=== PATIENT | male | born 1950 | race Caucasian/White ===

== ENCOUNTER → 2016-09-23 | Outpatient (CLI) | payer BC, OTHER ==
[~2016-09-23] MED LIST: ASPIRIN325 PO; ATORVASTATIN CA40 MG PO; CARVEDILOL3.125 MG PO; FERREX 150150 MG PO; FISH OIL500 M1 PO; FLEXERIL PO; GLUCOPHAGE1000 MG PO; HEMORRHOIDAL H1 EACH TP; HUMALOG100 UNIT/1 SUBQ; K-DUR 20 MEQ T20 MEQ PO; LANTUS SUBQ; LASIX 40 MG TAB40 M1 PO; LORTAB 5 MG/5001 TA1 PO; NORCO 5-325 TA1 EACH PO; PACERONE 200 M200 M1 PO; PERCOCET 5-3251 EACH PO; SENOKOT-S1 TA1 PO; SIMVASTATIN; SIMVASTATIN40 MG PO; UNICOMPLEX M TA1 TA1 PO; ZESTRIL10 MG PO; ZESTRIL20 MG PO
== END ==
LOC: RAD 16:28
DX: M25.511 Pain in right shoulder (principal); M25.512 Pain in left shoulder

== ENCOUNTER 2017-12-04 08:08 | Emergency (ER) | payer OTHER ==
[~2017-12-04] VITALS: Ht 167.6 cm; Wt 95.3 kg
--- NOTE | ~2017-12-04 | EKG ---
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 <ELECTRONICALLY SIGNED> By: Varinder Braga MD, FACC 12/04/17 1711 0843 0843 Varinder Braga MD, [facility] /EPI
[2017-12-04] MEDS ORDERED: COREG25 MG PO (08:22)
[2017-12-04] MEDS ORDERED: PLAVIX 75 MG TA75 M1 PO (08:24)
[2017-12-04] MEDS ORDERED: FLOMAX0.4 MG PO (08:24)
[2017-12-04] MEDS ORDERED: TRESIBA FL100 UNIT/1 SUBQ (08:25)
[2017-12-04] MEDS ORDERED: ALDACTONE50 MG PO (08:25)
[2017-12-04 09:10] LABS: ABSOLUTE NEUTROPHILS 5.6 thou/uL (1.4-8.2); BASOPHILS 0.8 % (0.0-2.0); EOSINOPHILS 4.8 % (0.0-3.0); HEMATOCRIT 38.4 % (42.0-52.0); LYMPHOCYTES 28.2 % (24.0-44.0); MCH 26.6 pg (26.0-34.0); MCHC 33.8 g/dL (28.0-37.0); MCV 78.5 fL (80.0-100.0); MONOCYTES 7.9 % (1.0-8.0); PLATELET COUNT 238 thou/uL (150-400); POLYS 58.3 % (36.0-66.0); RBC 4.89 mil/uL (4.50-6.00); RDW 14.6 % (10.5-14.5); WBC 9.7 thou/uL (4.0-11.0)
[2017-12-04 09:19] LABS: ANION GAP 6 mmol/L (7-16); BUN 28 mg/dL (7-18); CALCIUM 9.6 mg/dL (8.5-10.1); CHLORIDE 106 mmol/L (98-107); CO2 25 mmol/L (21-32); CREATININE 1.6 mg/dL (0.7-1.3); GLUCOSE 145 mg/dL (74-106); POTASSIUM 4.7 mmol/L (3.5-5.1); SODIUM 137 mmol/L (136-145)
[2017-12-04 09:26] LABS: TROPONIN-I <0.06 ng/mL (<0.06)
[2017-12-04] MEDS ORDERED: VALIUM5 MG PO (10:27)
== END 2017-12-04 10:59 | disposition home or self-care (01) ==
LOC: ER 08:08
PROVIDERS: Emergency Medicine
DX: R42 Dizziness and giddiness (principal); H53.8 Other visual disturbances; I10 Essential (primary) hypertension; E78.5 Hyperlipidemia, unspecified; E11.9 Type 2 diabetes mellitus without complications; I42.9 Cardiomyopathy, unspecified; E78.00 Pure hypercholesterolemia, unspecified; Z90.49 Acquired absence of other specified parts of digestive tract; Z88.8 Allergy status to other drugs, medicaments and biological substances

== ENCOUNTER → 2018-05-15 | Outpatient (CLI) | payer OTHER ==
[~2018-05-15] MED LIST changes: +ALDACTONE50 MG PO; +COREG25 MG PO; +FLOMAX0.4 MG PO; +LISINOPRIL20 MG PO; +PLAVIX 75 MG TA75 M1 PO; +TRESIBA FL100 UNIT/1 SUBQ; +VALIUM5 MG PO
== END ==
LOC: RAD 16:22
DX: T82.529A Displacement of unspecified cardiac and vascular devices and implants, initial encounter (principal)

== ENCOUNTER → 2018-06-04 | Outpatient (CLI) | payer OTHER ==
[~2018-06-04] VITALS: Ht 167.6 cm; Wt 95.3 kg
[~2018-06-04] MED LIST changes: +ENTRESTO 24 MG1 EACH PO
[2018-06-04 11:22] VITALS: BP 165/89
[2018-06-04 11:22] LABS: ABSOLUTE NEUTROPHILS 4.9 thou/uL (1.4-8.2); BASOPHILS 1.1 % (0.0-2.0); EOSINOPHILS 5.9 % (0.0-3.0); HEMATOCRIT 47.3 % (42.0-52.0); HEMOGLOBIN 15.2 gm/dL (14.0-18.0); LYMPHOCYTES 28.6 % (24.0-44.0); MCH 26.1 pg (26.0-34.0); MCHC 32.1 g/dL (28.0-37.0); MCV 81.4 fL (80.0-100.0); MONOCYTES 7.5 % (1.0-8.0); PLATELET COUNT 270 thou/uL (150-400); POLYS 56.9 % (36.0-66.0); RBC 5.81 mil/uL (4.50-6.00); RDW 15.2 % (10.5-14.5); WBC 8.7 thou/uL (4.0-11.0)
[2018-06-04 11:31] LABS: CALCIUM 9.7 mg/dL (8.5-10.1); CREATININE 1.5 mg/dL (0.7-1.3); POTASSIUM 4.4 mmol/L (3.5-5.1)
[2018-06-04 11:37] LABS: ALBUMIN 3.7 g/dL (3.4-5.0); TOTAL BILIRUBIN 0.4 mg/dL (<0.1-1.0)
[2018-06-04 11:41] LABS: APTT 25.4 Seconds (24.5-32.8); PROTIME 9.5 Seconds (9.3-11.4)
--- NOTE | 2018-06-08 14:52 | P ---
[facility] [place] [address] PROCEDURE REPORT Name: IRIS SWIFT Room #: REG [facility]#: [id number] Admission: 06/04/18 Attend Phys: Wilbert Mann MD Discharge: Date of : 50 Report #: [id number] THIS REPORT FOR: //name// CC: Robert Mann DATE OF SERVICE: 06/04/2018 PREOPERATIVE DIAGNOSIS: Abnormal implantable cardioverter-defibrillator lead impedance. POSTOPERATIVE DIAGNOSIS: Abnormal implantable cardioverter-defibrillator lead impedance. HISTORY OF PRESENT ILLNESS: The patient is a 67-year-old status post recent ICD implantation by Dr. Montgomery for primary prevention of sudden cardiac . He was noted to have change in the impedance on his ICD lead as well as noise and decreased R waves. He is here for ICD lead revision. PROCEDURES PERFORMED: Insert and reposition of a single ICD plus lead, CPT CODE 31201. ANESTHESIA: The patient underwent MAC anesthesia with no anesthesia related complications. DESCRIPTION OF PROCEDURE: The patient underwent informed consent. We discussed the details of the procedure including the risk, which include but not limited to bleeding, infection, stroke, MO as well as possible cardiac perforation. He understood these risks and is willing to proceed. The patient was brought to the EP laboratory in a fasting and sedated state and prepped and draped in a sterile fashion. He underwent venography, which demonstrated patency of the left axillary vein. He received IV vancomycin for antibiotic prophylaxis. Next, I injected lidocaine at the prior incision site. The incision was made and the chronic pocket was entered. I then dissected out the lead from some of the scar tissue. I then performed a tug test on the lead and the lead came out of the header. It appeared that the header had not been completely tightened down. I therefore tested the lead using the external wires and there was normal sensing, impedances and thresholds and there was no lead noise on the existing lead. I reviewed the lead insulation and this appeared to be within normal limits. I therefore then placed the lead into the header and I secured the header. I performed multiple tug tests and it appeared that the screw mechanism of his ICD was within normal limits. I therefore expanded the pocket slightly as I planned to place a [employer] antibiotic pouch into the pocket given his higher risk of infection. I then placed the device and [address] [address] PROCEDURE REPORT Name: IRIS SWIFT [id number] Admission: 06/04/18 Attend Phys: Wilbert Mann MD Discharge: Date of : 50 Report #: [id number] antibiotic pouch into the pocket and then irrigated the pocket with vancomycin. I then closed the pocket in 3 layers using 2-0 for the deep layer, 3-0 for the mid layer and 4-0 for the subcuticular. Surgical glue was placed to the outer skin layer. The device was interrogated and was found to be functioning normally with stable impedances, thresholds and sensing. There was no lead noise. The device was reprogrammed to its nominal settings. Again, the device was a [employer] model #962428B, serial #[id number]. The ICD lead was a [employer] model#7122Q, 58 cm, serial #[id number]. CONCLUSIONS: Successful ICD lead revision without complications. RECOMMENDATIONS: The patient will be discharged home today on his standard medications and will follow up in 7-10 days for site check. <ELECTRONICALLY SIGNED> By: Wilbert Mann MD 06/08/18 1452 1332 1217 Wilbert Mann MD /nt
== END | disposition home or self-care (01) ==
LOC: CATH 06-01 13:22
PROVIDERS: Internal Medicine Cardiovascular Disease
DX: T82.120A Displacement of cardiac electrode, initial encounter (principal); I25.5 Ischemic cardiomyopathy; I50.9 Heart failure, unspecified; E11.9 Type 2 diabetes mellitus without complications; E78.5 Hyperlipidemia, unspecified; E78.00 Pure hypercholesterolemia, unspecified; Z82.49 Family history of ischemic heart disease and other diseases of the circulatory system; Z79.899 Other long term (current) drug therapy; Z90.49 Acquired absence of other specified parts of digestive tract; Z95.1 Presence of aortocoronary bypass graft; Z79.82 Long term (current) use of aspirin; Z79.4 Long term (current) use of insulin; Z98.890 Other specified postprocedural states; Z88.8 Allergy status to other drugs, medicaments and biological substances; Y83.8 Other surgical procedures as the cause of abnormal reaction of the patient, or of later complication, without mention of misadventure at the time of the procedure

== ENCOUNTER 2019-07-12 09:44 | Inpatient (IN) | payer OTHER ==
[~2019-07-12] VITALS: Ht 167.6 cm; Wt 93.1 kg
--- NOTE | ~2019-07-12 | EKG ---
[facility] [place] [address] ELECTROCARDIOGRAM REPORT Name: SWIFTIRIS ROMERO Room #: [facility] M.R.#: [id number] Admission: Attend Phys: Discharge: Date of : 50 Report #: [id number] THIS REPORT FOR: cc: Henry Macedo James A. DO Epiphany, Epiphany MD ~ THIS REPORT FOR: //name// [facility] ED Test Date: 2019-07-12 Test Time: 09:46:14 Pat Name: IRIS SWIFT Department: Room: Gender: M [employer] Hand: : 1950 Requested By: Samy Duran Order Number: [id number] MD: Measurements Intervals [place] Rate: 94 P: 23 NC: 176 QRS: -86 QRSD: 177 T: 81 QT: 432 QTc: 541 Interpretive Statements Sinus rhythm Left atrial enlargement Right bundle branch block Compared to ECG 12/04/2017 08:43:31 Atrial premature complex(es) no longer present Myocardial infarct finding no longer present [email or web address] By: 0946 0946 Epiphany Epiphany, /EPI
[2019-07-12 09:49] VITALS: BP 183/102
[2019-07-12] MEDS ORDERED: TRULICITY0.75 MG/0. SUBQ (10:17)
[2019-07-12 10:24] LABS: ABSOLUTE NEUTROPHILS 5.5 thou/uL (1.4-8.2); EOSINOPHILS 3.3 % (0.0-3.0); LYMPHOCYTES 23.5 % (24.0-44.0); MCH 26.5 pg (26.0-34.0); MCHC 31.7 g/dL (28.0-37.0); MCV 83.5 fL (80.0-100.0); MONOCYTES 7.6 % (1.0-8.0); PLATELET COUNT 256 thou/uL (150-400); POLYS 64.6 % (36.0-66.0); RBC 5.27 mil/uL (4.50-6.00); RDW 14.6 % (10.5-14.5); WBC 8.5 thou/uL (4.0-11.0)
[2019-07-12 10:27] LABS: CALCIUM 9.1 mg/dL (8.5-10.1); CREATININE 1.5 mg/dL (0.7-1.3); POTASSIUM 4.4 mmol/L (3.5-5.1)
[2019-07-12 10:38] LABS: ALBUMIN 3.7 g/dL (3.4-5.0); MAGNESIUM 1.7 mg/dL (1.8-2.4); TOTAL BILIRUBIN 0.6 mg/dL (<0.1-1.0); TOTAL PROTEIN 7.9 g/dL (6.4-8.2); TROPONIN-I 0.08 ng/mL (<0.06)
[2019-07-12 11:24] VITALS: BP 152/95
[2019-07-12 12:37] VITALS: BP 147/96
--- NOTE | 2019-07-12 12:51 | NUR ---
REC PT FROM ED AT 1245, VS TAKEN, B/P STILL REMAINS HIGH AFTER AMBULATION FROM ED BED AND BATHROOM. ROOM AIR. NO COMPLAINTS/NEEDS AT THIS TIME. SEE SEPARATE INTERVENTIONS FOR ASSESSMENTS, SEE CARDIAC HISTORY. GAVE DEMO OF CALL LIGHT AND ROOM, SPOUSE AT BEDSIDE. ENCOURAGED BOTH TO USE CALL LIGHT FOR ANY NEEDS
[2019-07-12 12:52] LABS: CHOLESTEROL 260 mg/dL (<200); HDL CHOLESTEROL 34 mg/dL (>40); LDL CHOLESTEROL 186 mg/dL (<100); TC:HDL 7.6 Ratio (Not establshd); TRIGLYCERIDE 201 mg/dL (<150); VLDL 40 mg/dL (<40)
[2019-07-12 13:31] VITALS: BP 156/101
--- NOTE | 2019-07-12 15:10 | 2DMMODE ---
[facility] [address] [place] [address] 2 D/M-MODE ECHOCARDIOGRAM Name: IRIS SWIFT Room #: 212-P ADM IN M.R.#: [id number] Admission: 07/12/19 Attend Phys: Arthur Rm MD Discharge: Date of : 50 Report #: [id number] THIS REPORT FOR: cc: Henry Macedo James A. DO Lammoglia, Francisco J. MD ~ APPROVED REPORT Study performed: 07/12/2019 13:50:07 EXAM: Comprehensive 2D, Doppler, and color-flow Echocardiogram Patient Location: ER Room #: 7 Status: stat BSA: 2.00 HR: 86 bpm BP: 147/96 mmHg Rhythm: Pacemaker Other Information Study Quality: Good Indications ICD: Diabetes Dyspnea CAD Cardiomyopathy Chest Pain Hypertension/HDD 2D Dimensions RVDd: 33.37 mm IVSd: 10.32 (7-11mm) LVOT Diam: 19.13 (18-24mm) LVDd: 55.87 mm PWd: 10.07 (7-11mm) Ascending Ao: 29.44 (22-36mm) LVDs: 47.52 (25-40mm) Aortic Root: 31.74 mm IVC: 21.00 mm Volumes Left Atrial Volume (Systole) Single Plane 4CH: 60.00 mL Single Plane 2CH: 52.82 mL LA ESV Index: 31.00 mL/m2 [facility] [address] [place] [address] 2 D/M-MODE ECHOCARDIOGRAM Name: IRIS SWIFT Room #: 212-P ADM IN M.R.#: [id number] Admission: 07/12/19 Attend Phys: Arthur Rm MD Discharge: Date of : 50 Report #: [id number] Aortic Valve AoV Peak Param.: 1.08 m/s AO Peak Gr.: 4.63 mmHg LVOT Max P.20 mmHg LVOT Max V: 0.55 m/s BANDAR Vmax: 1.46 cm2 Pulmonary Valve PV Peak Param.: 0.91 m/s PV Peak Gr.: 3.33 mmHg Tricuspid Valve TR Peak Param.: 3.41 m/s TR Peak Gr.: 46.59 mmHg PA Pressure: 57.00 mmHg Left Ventricle Left ventricle is at the upper limits of normal. There is normal left ventricular wall thickness. Left ventricular ejection fraction is moderate to severely decreased. LVEF is 30-35%. Severe diastolic dysfunction is present (restrictive filling). Right Ventricle Right ventricle is at the upper limits of normal. Right ventricle is borderline. Device lead is present in the right ventricle. Atria Left atrium is at the upper limits of normal. Right atrium is dilated. Device lead is present in the right atrium. Aortic Valve The aortic valve is normal in structure. The Aortic valve is sclerotic. No aortic regurgitation is present. There is no aortic valvular stenosis. Mitral Valve The mitral valve is normal in structure. Mild mitral regurgitation. No evidence of mitral valve stenosis. Tricuspid Valve The tricuspid valve is normal in structure. There is mild tricuspid regurgitation. Estimated PAP 57 mmHg. There is moderate pulmonary hypertension. Pulmonic Valve The pulmonary valve is normal in structure. Trace to mild pulmonic regurgitation. [facility] [address] [place] [address] 2 D/M-MODE ECHOCARDIOGRAM Name: IRIS SWIFT Room #: 212-[facility] IN ..#: [id number] Admission: 07/12/19 Attend Phys: Arthur Rm MD Discharge: Date of : 50 Report #: [id number] Great Vessels The aortic root is normal in size. IVC is dilated and collapses <50% with inspiration. Pericardium There is no pericardial effusion. <Conclusion> Left ventricle is at the upper limits of normal. LVEF is 30-35%. Right ventricle is at the upper limits of normal. Device lead is present in the right ventricle. Left atrium is at the upper limits of normal. Right atrium is dilated. Device lead is present in the right atrium. The aortic valve is normal in structure. The Aortic valve is sclerotic. The mitral valve is normal in structure. Mild mitral regurgitation. The tricuspid valve is normal in structure. There is mild tricuspid regurgitation. Estimated PAP 57 mmHg. There is moderate pulmonary hypertension. The pulmonary valve is normal in structure. Trace to mild pulmonic regurgitation. There is no pericardial effusion. <ELECTRONICALLY SIGNED> By: Robert Montgomery MD 07/12/19 1509 1509 1509 Robert Montgomery MD /INF
[2019-07-12 17:16] LABS: APTT 29.9 Seconds (24.5-32.8); D-DIMER 0.53 ug/mLFEU (0.19-0.50); PROTIME 10.1 Seconds (9.3-11.4)
[2019-07-12 18:00] VITALS: BP 171/96
[2019-07-12 20:26] VITALS: BP 140/76
[2019-07-13 03:57] VITALS: BP 126/63
[2019-07-13 04:06] LABS: GLYCOHEMOGLOBIN (HGB A1C) 12.8 % (4.8-5.6)
--- NOTE | 2019-07-13 04:13 | NUR ---
ASSUMED PT CARE AT 1900. PT IS ALERT AND ORIENTEDX4 AND PLEASANT, DENIES CHEST PAIN AND SOB, ASSESSMENTS CHARTED, SINUS RHYTHM WITH 1ST DEGREE AVB ON THE MONITOR, RESTED WELL, WILL CONTINUE TO MONITOR
[2019-07-13 06:10] LABS: HEMATOCRIT 40.6 % (42.0-52.0); HEMOGLOBIN 12.8 gm/dL (14.0-18.0); MCH 26.4 pg (26.0-34.0); MCHC 31.6 g/dL (28.0-37.0); MCV 83.7 fL (80.0-100.0); RBC 4.85 mil/uL (4.50-6.00); RDW 14.5 % (10.5-14.5); WBC 7.3 thou/uL (4.0-11.0)
[2019-07-13 06:35] LABS: CALCIUM 8.7 mg/dL (8.5-10.1); CREATININE 1.6 mg/dL (0.7-1.3); POTASSIUM 4.5 mmol/L (3.5-5.1); TROPONIN-I 0.07 ng/mL (<0.06)
[2019-07-13 08:42] VITALS: BP 136/82
[2019-07-13 09:52] VITALS: BP 136/82
[2019-07-13 12:06] VITALS: BP 100/51
--- NOTE | 2019-07-13 13:11 | HC ---
[facility] [place] [address] CONSULTATION Name: IRIS SWIFT Room #: 212-P ADM IN M.R.#: [id number] Admission: 07/12/19 Attend Phys: Arthur Rm MD Discharge: Date of : 50 Report #: [id number] THIS REPORT FOR: cc: Henry Macedo James A. DO Al-Mubaslat, Ahmad MD ~ CC: Henry Rm DATE OF SERVICE: 07/13/2019 ENDOCRINE CONSULTATION NOTE CONSULTING PHYSICIAN: Dr. Sonali Goldman. REASON FOR CONSULTATION: Uncontrolled type 2 diabetes mellitus. PRIMARY CARE: Dr. Macedo. REASON FOR CONSULTATION: Uncontrolled type 2 diabetes mellitus. HISTORY OF PRESENT ILLNESS: This is a 69-year-old male patient whose medical background is significant for type 2 diabetes mellitus, coronary artery disease, cardiomyopathy, and chronic kidney disease as well as hypertension and hyperlipidemia. The patient presented to the ER yesterday after complaints of intermittent chest pain that occurred for some time prior to his presentation. When questioned about his diabetes history, the patient explained that he had been a diabetic for many years and that he was maintained on a regimen of Tresiba insulin 45 units twice a day and Trulicity once a week. However, he decided to stop all kinds of antidiabetic therapy more than 2 months ago. When asked about the reason for this, he denied having had tolerability or financial issues relating to diabetes therapy, but said he just did not feel like continuing with that. However, the patient continued to monitor his blood glucose values regularly and reports that his blood sugar values have consistently run between 250 and 350 mg/dL. However, as blood glucose values have risen, he did not experience polyphagia, polydipsia, polyuria or body weight changes. The patient is not aware of diabetic retinopathy and he obtains routine eye exams. He is not aware of chronic kidney disease and denies active issues with peripheral diabetic neuropathy. The patient has an extensive history of CAD remarkable for 5-vessel bypass surgery in 2014. He notes that he has been following with Cardiology closely since then. He is also known to have cardiomyopathy, status post ICD placement. [facility] [address] [place] [address] CONSULTATION Name: IRIS SWIFT Room #: 212-P [facility] IN [facility].#: [id number] Admission: 07/12/19 Attend Phys: Arthur Rm MD Discharge: Date of : 50 Report #: [id number] REVIEW OF SYSTEMS: CONSTITUTIONAL: Slight issues with fatigue and tiredness, but not body weight changes, fever or chills. HEENT: Negative for sinus congestion, sinus pain, ear drainage. PULMONARY: Occasional issues with shortness of breath, but no cough or hemoptysis. CARDIAC: Occasional dyspnea on exertion, slight trace edema and intermittent active issues with chest pain. GASTROINTESTINAL: Occasional abdominal distention, discomfort, nausea, but not vomiting. NEUROLOGY: Negative for lightheadedness, loss of consciousness, seizure activity or frequent severe headaches. PSYCHIATRIC: Negative for delusions, hallucinations or other major issues. Otherwise, review of systems noncontributory other than those mentioned in HPI. PAST MEDICAL HISTORY: 1. Type 2 diabetes mellitus. 2. Hypertension. 3. Hyperlipidemia. 4. Coronary artery disease, status post 5-vessel CABG 5 years ago. 5. Cardiomyopathy, status post ICD placement. 6. History of kidney stones. 7. BPH. ACTIVE MEDICATIONS: Aspirin 325 mg daily, atorvastatin 40 mg daily, Entresto 24-26 mg 1 tab daily, carvedilol 25 mg b.i.d., Flomax 0.4 mg daily, spironolactone 25 mg daily. PAST SURGICAL HISTORY: Gallbladder removal, right ankle surgery, left knee surgery, 5-vessel CABG and ICD placement. ALLERGIES: HE IS ALLERGIC TO MECLIZINE. FAMILY HISTORY: Noncontributory. 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 Denies use of tobacco, alcohol or illicit drugs. PHYSICAL EXAMINATION: GENERAL: Pleasant male patient who is not in apparent pain or distress. VITAL SIGNS: Blood pressure is 136/82 mmHg, heart rate is 64 beats per minute, respirations 22 per minute, temperature of 36.4 degrees. CONSTITUTIONAL: The patient is lying in bed comfortably, not in pain or distress. HEENT: Anicteric sclerae. Intact extraocular motions. [address] [address] CONSULTATION Name: IRIS SWIFT Room #: 212-P [facility] IN M.R.#: [id number] Admission: 07/12/19 Attend Phys: Arthur Rm MD Discharge: Date of : 50 Report #: [id number] NECK: Supple, without JVD, carotid bruits or lymphadenopathy. I do not appreciate thyromegaly. CHEST: Noted for moderate air entry bilaterally with scattered rales. No wheeze or crackles. HEART: Regular rate and rhythm without murmurs or gallops. ABDOMEN: Soft and lax. No guarding. Active bowel sounds. EXTREMITIES: Lower extremity exam, trace ankle edema bilaterally. No skin breaks. Active pedal pulses. Sensation to light touch is largely intact. NEUROLOGIC: Awake, alert and oriented to time, place and person. The remainder of his examination is largely nonfocal. PSYCHIATRIC: Pleasant, interactive, appropriate. Normal mood and affect. LABORATORY DATA: Since his arrival, his blood glucoses have ranged between 134-284 mg/dL. Otherwise, sodium 139, potassium 4.5, chloride 106, CO2 of 25, anion gap 8, BUN 19, creatinine 1.6. It is noted that his baseline had ranged anywhere from 1.2-2.2, lipase 102, total bilirubin 0.6, calcium 8.7, magnesium 1.7, alkaline phosphatase 164, ALT 56, total protein 7.9, albumin 3.7, EGFR 43. Troponin 0.07. Total cholesterol 260, triglycerides 201, HDL 34, LDL 186. BNP 2747, white blood count 7.3, hemoglobin 12.8, hematocrit 40.6, platelets 238. Hemoglobin A1c 12.8%. TSH 2.441. ASSESSMENT AND PLAN: 1. Type 2 diabetes mellitus. The patient had a complete abandonment of his antidiabetic meds over 2 months ago, which reflected poorly on his glycemic control both as per his reported blood glucose values as well as by his recorded hemoglobin A1c of 12.8%. I spent a lot of time with the patient, counseling him about the necessity of achieving and maintaining adequate glycemic control towards the prevention of microvascular and macrovascular diabetic complications, especially in view of his extensive and documented coronary artery disease, which he seemed to understand well. I counseled him about the desired blood glucose range of control. Given the severe hyperglycemic outlook, it would be essential to include insulin in any antidiabetic regimen established at this point in time and I will do so by adding Lantus insulin at a dose of 22 units daily. The patient would benefit from the addition of low dose metformin, SGLT2 inhibitor, and possibly resuming GLP-1 analogue coverage going forward. However, in the immediate setting, I will add linagliptin as well and provide support with low intensity Humalog supplemental scale to utilize as needed while we monitor his blood glucose values a.c. and at bedtime. 2. Hypertension. The patient's level of blood pressure control is adequate on the current regimen, he is to continue with the same. 3. Hyperlipidemia. The patient's level of lipid control is inadequate and I suspect it probably is as well due to significant therapeutic noncompliance. He was counseled about the importance of maintaining adequate lipid control for CVD prevention, which he understands well. Currently, he is placed on atorvastatin [address] [address] CONSULTATION Name: JAMISONNIDHI Room #: 212-P [facility] IN M.R.#: [id number] Admission: 07/12/19 Attend Phys: Arthur Rm MD Discharge: Date of : 50 Report #: [id number] 40 mg at bedtime and tolerating it well, he is to continue with the same. 4. Coronary artery disease. The patient has active issues with CAD, cardiomyopathy and Cardiology is following closely, especially in view of his active chest pain issues. We will defer further management in this regard to Cardiology. I reviewed the patient's clinical care notes, laboratory notes, and other pertinent data past and present for over 35 minutes. I certainly appreciate this consultation by Dr. Goldman. <ELECTRONICALLY SIGNED> By: Estrella Granger MD 07/13/19 1311 1200 1219 Estrella Granger MD /nt
--- NOTE | 2019-07-13 14:45 | NUR ---
ASSUMED CARE PT SHIFT SHIFT CHANGE. ASSESSMENTS CHARTED. MEDS GIVEN PER AUG. PT ALERT AND ORIENTED. VSS. DENIES PAIN. O2 SATS WNL ON ROOM AIR. PT UP INDEPENDENT. DENIES CHEST PAIN/SOB. PT CURRENTLY RESTING IN BED WITH NO NEEDS AT THIS TIME. WILL PASS ON REPORT.
[2019-07-13 15:30] VITALS: BP 106/65
[2019-07-13 20:00] VITALS: BP 102/58
[2019-07-14 03:19] VITALS: BP 102/58
[2019-07-14 04:00] VITALS: BP 100/60
--- NOTE | 2019-07-14 04:48 | NUR ---
ASSUMED PT CARE AT 1900, PT IS ALERT AND ORIENTEDX4, IN GOOD SPIRITS, DENIES CHEST PAIN, COUGH OR SOB, VITAL SIGNS STABLE, ASSESSMENTS CHARTED, SR ON THE MONITOR, RESTED WELL THROUGH THE NIGHT, WILL CONTINUE TO MONITOR
[2019-07-14 05:35] LABS: HEMATOCRIT 39.5 % (42.0-52.0); HEMOGLOBIN 12.5 gm/dL (14.0-18.0); MCH 26.3 pg (26.0-34.0); MCHC 31.7 g/dL (28.0-37.0); MCV 82.8 fL (80.0-100.0); RBC 4.77 mil/uL (4.50-6.00); RDW 14.9 % (10.5-14.5); WBC 8.1 thou/uL (4.0-11.0)
[2019-07-14 05:54] LABS: CALCIUM 8.9 mg/dL (8.5-10.1); CREATININE 1.7 mg/dL (0.7-1.3); MAGNESIUM 2.1 mg/dL (1.8-2.4); POTASSIUM 3.7 mmol/L (3.5-5.1)
[2019-07-14 07:40] VITALS: BP 139/71
[2019-07-14 12:03] VITALS: BP 107/50
--- NOTE | 2019-07-14 12:53 | NUR ---
PATIENT ALERT ORIENTED X4. WILL BE DISCHARGING TOMORROW PER CARDIOLOGY. STATES HE FEELS MUCH BETTER TODAY. HE IS UP AD EMILY. RESPIRATIONS NON LABORED ELVIN. WITH REST. IN GOOD MOOD TODAY. WILL CONT WITH PLAN OF CARE.
[2019-07-14 17:01] VITALS: BP 128/81
--- NOTE | 2019-07-14 18:36 | NUR ---
ASSUMED CARE OF PT APPROX 14:00 ON, A&0X4, AMB INDEPENDENTLY, ONLY SLIGHTLY SOA W/AMB, IN EXCELLENT SPIRITS. BG AND HTN CLOSELY MONITORED. FAMILY ABSENT TODAY. PT ENCOURAGED TO USE CALL LIGHT FOR ANY NEEDS. SEE SEPARATE INTERVENTIONS FOR ASSESSMENTS.
[2019-07-14 20:16] VITALS: BP 125/69
--- NOTE | 2019-07-15 03:29 | NUR ---
ASSUMED CARE FROM DAY SHIFT PT RESTING IN BED, DENIES CHEST PAIN OR SOA, DISCUSSED PLAN OF CARE AND AGREEABLE. SERICULTURE TEACHER SHOWS NSR . RESTED WELL THROUGHOUT HOURLY ROUNDS. WILL CONITNUE WITH CURRENT PLAN OF CARE AND WILL REPORT CHANGES OR ABNORMAL FINDINGS.
[2019-07-15 04:42] VITALS: BP 120/66
[2019-07-15 08:00] VITALS: BP 114/78
[2019-07-15 12:18] VITALS: BP 131/70
[2019-07-15] MEDS ORDERED: HUMALOG100 UNIT/1 SUBQ (12:21)
[2019-07-15] MEDS ORDERED: ACCUPRIL40 MG PO (12:21)
[2019-07-15] MEDS ORDERED: TRADJENTA5 MG PO (12:21)
[2019-07-15] MEDS ORDERED: DEMADEX20 MG PO (12:21)
[2019-07-15] MEDS ORDERED: LANTUS SUBQ (12:21)
[2019-07-15 14:19] VITALS: BP 131/70
--- NOTE | 2019-07-15 15:23 | NUR ---
[facility] SPOKE WITH GHAZAL IN INTAKE SHE RECEIVED REFERRAL AND CAN ACCEPT AT DC. PT DISCHARGING HOME TODAY WITH [facility] HH FAXED DC ORDERS/SUMMARY SPOKE WITH GHAZAL AND SHE RECEIVED DC ORDERS AND WILL NOTIFY PT TIME OF VISITS.
--- NOTE | 2019-07-15 16:03 | NUR ---
ASSESSMENT CHARTED. PT ALERT AND ORIENTED. VSS. DENIED HAVING PAIN OR DISCOMFORT. SEEN BY DR. JEFFERS. ORDERS GIVEN TO DISCHARGE PT TO HOME WITH HOME HEALTH. DISCHARGE INSTRUCTIONS GIVEN TO PT. PT VERBERLISED UNDERSTANDING.
--- NOTE | 2019-07-15 16:15 | NUR ---
met with patient who is to dc home today. He is to dc with HH. He reports he has rec in past but cannot recall. Patient with no preference for HH care and agreeable to [facility], they are accepting. Verified address and PCP. no further needs
== END 2019-07-15 16:08 | disposition home health service (06) | DRG 291 ==
LOC: ER 09:44 → EROBS 11:38 → 2N 11:38
PROVIDERS: Emergency Medicine; Internal Medicine; ADMIT Hospitalist
DX: I13.0 Hypertensive heart and chronic kidney disease with heart failure and stage 1 through stage 4 chronic kidney disease, or unspecified chronic kidney disease (principal); I50.23 Acute on chronic systolic (congestive) heart failure; N17.9 Acute kidney failure, unspecified; E78.00 Pure hypercholesterolemia, unspecified; I25.10 Atherosclerotic heart disease of native coronary artery without angina pectoris; E11.22 Type 2 diabetes mellitus with diabetic chronic kidney disease; N18.9 Chronic kidney disease, unspecified; E78.5 Hyperlipidemia, unspecified; N40.0 Benign prostatic hyperplasia without lower urinary tract symptoms; E66.9 Obesity, unspecified; I25.5 Ischemic cardiomyopathy; Z68.33 Body mass index [BMI] 33.0-33.9, adult; I25.2 Old myocardial infarction; Z95.1 Presence of aortocoronary bypass graft; Z95.810 Presence of automatic (implantable) cardiac defibrillator; Z90.49 Acquired absence of other specified parts of digestive tract; Z87.442 Personal history of urinary calculi; Z79.82 Long term (current) use of aspirin; Z79.4 Long term (current) use of insulin; Z79.899 Other long term (current) drug therapy; Z88.8 Allergy status to other drugs, medicaments and biological substances; Z91.14 Patient's other noncompliance with medication regimen; Z95.5 Presence of coronary angioplasty implant and graft
CPT/HCPCS: 10081

== ENCOUNTER → 2019-08-06 | Outpatient (CLI) | payer OTHER ==
[~2019-08-06] MED LIST changes: +ACCUPRIL40 MG PO; +DEMADEX20 MG PO; +TRADJENTA5 MG PO; +TRULICITY0.75 MG/0. SUBQ
== END ==
LOC: SJCVC 15:03
DX: I25.5 Ischemic cardiomyopathy (principal); I50.22 Chronic systolic (congestive) heart failure; I25.10 Atherosclerotic heart disease of native coronary artery without angina pectoris; E11.9 Type 2 diabetes mellitus without complications; Z95.1 Presence of aortocoronary bypass graft; Z90.49 Acquired absence of other specified parts of digestive tract; Z79.899 Other long term (current) drug therapy

== ENCOUNTER 2020-07-27 15:35 | Emergency (ER) | payer OTHER ==
[~2020-07-27] VITALS: Ht 167.6 cm; Wt 88.5 kg
[2020-07-27 16:36] LABS: ABSOLUTE NEUTROPHILS 6.6 thou/uL (1.4-8.2); BASOPHILS 1.1 % (0.0-2.0); EOSINOPHILS 3.3 % (0.0-3.0); HEMATOCRIT 37.9 % (42.0-52.0); HEMOGLOBIN 12.1 gm/dL (14.0-18.0); LYMPHOCYTES 18.5 % (24.0-44.0); MCH 26.8 pg (26.0-34.0); MCHC 32.1 g/dL (28.0-37.0); MCV 83.7 fL (80.0-100.0); MONOCYTES 7.6 % (1.0-8.0); PLATELET COUNT 384 thou/uL (150-400); POLYS 69.5 % (36.0-66.0); RBC 4.53 mil/uL (4.50-6.00); RDW 14.9 % (10.5-14.5); WBC 9.5 thou/uL (4.0-11.0)
[2020-07-27 16:52] LABS: ANION GAP 6 mmol/L (7-16); BUN 22 mg/dL (7-18); CALCIUM 9.4 mg/dL (8.5-10.1); CHLORIDE 104 mmol/L (98-107); CO2 28 mmol/L (21-32); CREATININE 1.6 mg/dL (0.7-1.3); GLUCOSE 256 mg/dL (74-106); POTASSIUM 4.6 mmol/L (3.5-5.1); SODIUM 138 mmol/L (136-145)
[2020-07-27 16:56] LABS: APTT 27.9 Seconds (24.5-32.8); PROTIME 10.7 Seconds (9.3-11.4)
[2020-07-27 17:02] LABS: ALBUMIN 3.2 g/dL (3.4-5.0); LIPASE 118 U/L (73-393); SGOT 31 U/L (15-37); SGPT 70 U/L (16-63); TOTAL BILIRUBIN 0.5 mg/dL (0.2-1.0); TOTAL PROTEIN 7.2 g/dL (6.4-8.2); TROPONIN-I <0.06 ng/mL (<0.06)
[2020-07-27] MEDS ORDERED: LASIX 40 MG TAB40 MG PO (17:53)
[2020-07-27 18:02] VITALS: BP 163/101
--- NOTE | 2020-07-28 07:03 | EKG ---
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: SANJUANA : 1950 Requested By: Derrek Chaidez Order Number: [id number] MD: Ashish Russo Measurements Intervals [place] Rate: 101 P: 12 [place]: 187 QRS: -75 QRSD: 153 T: 97 QT: 378 QTc: 490 Interpretive Statements Sinus tachycardia Probable left atrial enlargement Right bundle branch block Lateral leads are also involved Compared to ECG 07/12/2019 09:46:14 Sinus rhythm no longer present Electronically Signed On 07-28-2020 7:03:32 CHIEF BUILDING INSPECTOR by Ashish Russo [email or web address] <ELECTRONICALLY SIGNED> By: Ashish Russo MD, [facility] 07/28/20 0703 1540 1540 Ashish Russo MD, FACC /EPI
== END 2020-07-27 18:01 | disposition home or self-care (01) ==
LOC: ER 15:35
PROVIDERS: Emergency Medicine
DX: R07.89 Other chest pain (principal); I11.0 Hypertensive heart disease with heart failure; I50.9 Heart failure, unspecified; E11.9 Type 2 diabetes mellitus without complications; E78.5 Hyperlipidemia, unspecified; Z95.1 Presence of aortocoronary bypass graft; Z79.4 Long term (current) use of insulin; Z79.899 Other long term (current) drug therapy; Z88.8 Allergy status to other drugs, medicaments and biological substances

== ENCOUNTER → 2020-07-29 | Outpatient (CLI) | payer OTHER ==
[~2020-07-29] MED LIST changes: +LASIX 40 MG TAB40 MG PO
== END ==
LOC: SJCVC 12:55
PROVIDERS: ATTEND Internal Medicine
DX: I25.5 Ischemic cardiomyopathy (principal); I50.22 Chronic systolic (congestive) heart failure; E11.9 Type 2 diabetes mellitus without complications; E78.5 Hyperlipidemia, unspecified; Z79.4 Long term (current) use of insulin; Z95.810 Presence of automatic (implantable) cardiac defibrillator; Z95.1 Presence of aortocoronary bypass graft; Z79.899 Other long term (current) drug therapy; Z90.49 Acquired absence of other specified parts of digestive tract; Z98.890 Other specified postprocedural states; Z72.89 Other problems related to lifestyle; Z88.8 Allergy status to other drugs, medicaments and biological substances; Z82.49 Family history of ischemic heart disease and other diseases of the circulatory system

== ENCOUNTER → 2020-07-31 | Outpatient (CLI) | payer OTHER | LOC: SJCVCIMAG 08:38 | PROVIDERS: ATTEND Internal Medicine | DX: I08.1 Rheumatic disorders of both mitral and tricuspid valves (principal); R06.00 Dyspnea, unspecified; I25.5 Ischemic cardiomyopathy; E11.9 Type 2 diabetes mellitus without complications; R60.0 Localized edema; I25.10 Atherosclerotic heart disease of native coronary artery without angina pectoris; I50.9 Heart failure, unspecified; E78.5 Hyperlipidemia, unspecified; N40.0 Benign prostatic hyperplasia without lower urinary tract symptoms; Z95.1 Presence of aortocoronary bypass graft; Z95.0 Presence of cardiac pacemaker; Z88.8 Allergy status to other drugs, medicaments and biological substances ==

== ENCOUNTER → 2020-09-08 | Outpatient (CLI) | payer OTHER | LOC: SJCVC 10:03 | PROVIDERS: ATTEND Internal Medicine | DX: I44.0 Atrioventricular block, first degree (principal); I45.10 Unspecified right bundle-branch block; R94.31 Abnormal electrocardiogram [ECG] [EKG]; I50.22 Chronic systolic (congestive) heart failure; I25.5 Ischemic cardiomyopathy; E11.9 Type 2 diabetes mellitus without complications; Z79.4 Long term (current) use of insulin; Z88.8 Allergy status to other drugs, medicaments and biological substances; Z79.899 Other long term (current) drug therapy; Z72.89 Other problems related to lifestyle ==

== ENCOUNTER 2020-12-15 21:04 | Inpatient (IN) | payer OTHER ==
[~2020-12-15] VITALS: Ht 167.6 cm; Wt 83.3 kg
--- NOTE | ~2020-12-15 | HC ---
[facility] [address] [place] [address] CONSULTATION Name: IRIS SWIFT Room #: 205-P ADM IN M.R.#: [id number] Admission: 12/15/20 Attend Phys: Tj Reyna MD Discharge: Date of : 50 Report #: [id number] THIS REPORT FOR: cc: Henry Macedo James A. DO Lammoglia, Francisco J. MD ~ DATE OF SERVICE: 12/15/2020 REASON FOR CONSULTATION: Shortness of breath. HISTORY OF PRESENT ILLNESS: This is a very pleasant 70-year-old gentleman well known to me with cardiomyopathy, who presented to the Emergency Room due to increasing shortness of breath, coughing up ____ and hypoxemia. The patient apparently had been in [place], visiting family and had a lot of beer and high salt content foods including [employer], [employer]. He stated that since after arriving, he started having some slight increase in his shortness of breath, but became more prominent today. They did fly and did not drive. He has had some orthopnea also described. No palpitations are noted and he has not had any chest discomfort. Checking his blood pressure at home and noted to be markedly elevated at greater than 200 mmHg systolic and was concerned and came in for further assessment. PAST MEDICAL HISTORY: Significant for; 1. Ischemic cardiomyopathy. 2. History of nephrolithiasis. 3. Dyslipidemia. 4. Hypertension. 5. Diabetes. PAST SURGICAL HISTORY: Significant for: 1. Right ankle surgery. 2. Left knee surgery. 3. Cholecystectomy. 4. ICD placement. MEDICATIONS AT HOME: Carvedilol 25 mg b.i.d., atorvastatin 40 mg daily, lispro and glargine insulin, and furosemide 40 mg daily (the patient has stopped his BLAKE inhibition, ARB apparently). ALLERGIES: MECLIZINE. SOCIAL HISTORY: The patient is , does not smoke. Consumes alcohol socially. Does not follow up with the exercise regimen, although tries to limit fluid intake and salt intake. REVIEW OF SYSTEMS: ____ psychomotor state, the 10-point review of system is [facility] [address] [place] [address] CONSULTATION Name: IRIS SWIFT MANUEL Room #: 205-P ADM IN .R.#: [id number] Admission: 12/15/20 Attend Phys: Tj Reyna MD Discharge: Date of : 50 Report #: [id number]. Electrocardiogram demonstrates sinus rhythm, right bundle-branch block, nonspecific ST-T wave changes with left axis deviation. Laboratories are noted and reviewed in the chart. PHYSICAL EXAMINATION: GENERAL: Well-developed, well-nourished male, resting comfortably in no acute distress. VITAL SIGNS: Noted and reviewed in the chart with a blood pressure of 190/94, pulse ox 88%, pulse is 94, respirations are 30-35 per minute. HEENT: Normocephalic, atraumatic. Pupils are equal, round, reactive to light and accommodation. Extraocular muscles are intact. Sclerae and conjunctivae are anicteric. NECK: JVD is normal. Carotid upstrokes are bilaterally symmetrical. No bruits are heard. No thyromegaly. No lymphadenopathy. LUNGS: Demonstrates tidal volume decreased with decreased breath sounds in the bases. Some crackles are noted. CARDIAC: Demonstrates a regular rhythm. Systolic murmur from the base of the apex to axilla. No diastolic murmurs are noted. ABDOMEN: Soft, nontender, nondistended. Normal bowel sounds. Extremities: Without cyanosis, clubbing or edema. Distal pulses are intact. DTR symmetrical. NEUROLOGIC: Cranial nerves 2-12 are grossly normal and symmetrical. PSYCHIATRIC: Alert, oriented with normal affect. SKIN: Warm and dry. IMPRESSION: 1. Dyspnea may be secondary to dietary indiscretion and congestive heart failure due to these dietary indiscretions that he described, but it could also be some pneumonic process. Pulmonary embolus has been excluded by the ER physician, although he did not travel sitting for quite a long time since he flew from [place] to [place], both ways. We will diurese here in the ER and see if it helps his symptomatology and improve his shortness of breath. 2. Ischemic cardiomyopathy, not optimized on meds. I need to find out what happened to ____ that he had been on previously and reinstitute according to reasons for discontinuation. He does not have a high-grade kidney disease and I suspect that it may ____ refilled or picked up, but either way, we need to get him back on full guideline-directed medical therapy. 3. Heart failure with reduced ejection fraction, class 2.5-3. Diuresis as stated above and see if we can improve symptomatology more fully. 4. Diabetes mellitus as per primary care. Continue to monitor and optimize. 5. Hypertension. Before I make a significant moves in his antihypertensive regimen, we will diuresis for tonight. I suspect that part of the elevated [facility] [address] [place] [address] CONSULTATION Name: IRIS SWIFT Room #: 205-P ADM IN M.R.#: [id number] Admission: 12/15/20 Attend Phys: Tj Reyna MD Discharge: Date of : 50 Report #: [id number] blood pressure is not only for these dietary indiscretions described above, but also the absence of his ____ from a standard guideline directed medical therapy, which will need to reinstitute. By: [id number] Robert Montgomery MD /nt
[2020-12-15 21:16] VITALS: BP 190/94
[2020-12-15 21:42] LABS: ABSOLUTE NEUTROPHILS 5.5 thou/uL (1.4-8.2); BASOPHILS 0.6 % (0.0-2.0); EOSINOPHILS 1.4 % (0.0-3.0); HEMATOCRIT 41.1 % (42.0-52.0); HEMOGLOBIN 13.1 gm/dL (14.0-18.0); LYMPHOCYTES 12.3 % (24.0-44.0); MCH 25.8 pg (26.0-34.0); MCHC 31.9 g/dL (28.0-37.0); MCV 80.8 fL (80.0-100.0); MONOCYTES 8.5 % (1.0-8.0); PLATELET COUNT 216 thou/uL (150-400); POLYS 77.2 % (36.0-66.0); RBC 5.09 mil/uL (4.50-6.00); RDW 18.2 % (10.5-14.5); WBC 7.1 thou/uL (4.0-11.0)
[2020-12-15 21:54] LABS: ANION GAP 10 mmol/L (7-16); BUN 21 mg/dL (7-18); CALCIUM 8.4 mg/dL (8.5-10.1); CHLORIDE 102 mmol/L (98-107); CO2 24 mmol/L (21-32); CREATININE 1.8 mg/dL (0.7-1.3); GLUCOSE 248 mg/dL (74-106); POTASSIUM 4.6 mmol/L (3.5-5.1); SODIUM 136 mmol/L (136-145)
[2020-12-15 22:04] LABS: ALBUMIN 3.2 g/dL (3.4-5.0); SGOT 31 U/L (15-37); SGPT 24 U/L (30-65); TOTAL BILIRUBIN 0.7 mg/dL (0.2-1.0); TOTAL PROTEIN 7.1 g/dL (6.4-8.2); TROPONIN-I <0.06 ng/mL (<0.06)
[2020-12-15 22:29] LABS: BE(vivo) -2.6 mmol/L (-2 to +3); HCO3 21.7 mmol/L (22.0-26.0); PCO2 36.5 mmHg (35.0-45.0); PO2 85.2 mmHg (80.0-100.0); pH 7.393 (7.360-7.450); sO2 96.4 % (92.0-98.0)
[2020-12-16] MEDS ORDERED: EZALLOR SPRINKL20 MG PO (01:21)
[2020-12-16] MEDS ORDERED: ACCUPRIL40 MG PO (01:22)
[2020-12-16] MEDS ORDERED: WELLBUTRIN XL150 MG PO (01:23)
[2020-12-16] MEDS ORDERED: TRULICITY3 MG/0.5 M SUBQ (01:23)
[2020-12-16] MEDS ORDERED: ENTRESTO 24 MG1 EACH PO (01:23)
[2020-12-16] MEDS ORDERED: WELLBUTRIN SR150 MG PO (01:24)
[2020-12-16] MEDS ORDERED: JARDIANCE25 MG PO (01:25)
[2020-12-16] MEDS ORDERED: LEVEMIR100 UNIT/2 SUBQ (01:25)
[2020-12-16 01:40] VITALS: BP 174/100
--- NOTE | 2020-12-16 04:06 | NUR ---
ASSUMED PT CARE AT 0148 FROM ED. PT ON 2LNC AND TACHYPNIC, A/O X4, ASSESSMENT COMPLETED NOTED. PT WAS FEBRILE AND HYPERTENSIVE, CAMPUS INTERVIEWS INTERN NOTIFIED AND ORDERS INITIATED. PT EDUCATED ON FALL PRECAUTIONS AND STATES UNDERSTANDING. WILL CONTINUE TO WORK TOWARDS PT POC. BED IN LOWEST POSITION, CALL LIGHT IN REACH.
[2020-12-16 04:36] VITALS: BP 139/75
[2020-12-16 04:39] LABS: HEMATOCRIT 37.7 % (42.0-52.0); HEMOGLOBIN 12.4 gm/dL (14.0-18.0); MCH 26.5 pg (26.0-34.0); MCHC 32.9 g/dL (28.0-37.0); MCV 80.5 fL (80.0-100.0); RBC 4.68 mil/uL (4.50-6.00); WBC 6.5 thou/uL (4.0-11.0)
[2020-12-16 04:45] LABS: CALCIUM 8.3 mg/dL (8.5-10.1); CREATININE 2.1 mg/dL (0.7-1.3); POTASSIUM 4.4 mmol/L (3.5-5.1)
[2020-12-16 04:54] LABS: CHOLESTEROL 138 mg/dL (<200); HDL CHOLESTEROL 32 mg/dL (>40); LDL CHOLESTEROL 85 mg/dL (<100); TC:HDL 4.3 Ratio (Not establshd); TRIGLYCERIDE 106 mg/dL (<150); VLDL 21 mg/dL (<40)
[2020-12-16 05:01] LABS: SERUM ASSESSMENT Clear
[2020-12-16 07:45] VITALS: BP 156/82
[2020-12-16 10:27] LABS: URINE BILIRUBIN NEGATIVE (Negative); URINE BLOOD 2+ (Negative); URINE CLARITY CLEAR; URINE COLOR YELLOW; URINE GLUCOSE-RANDOM* NEGATIVE (Negative); URINE KETONES NEGATIVE (Negative); URINE LEUKOCYTES-REFLEX NEGATIVE (Negative); URINE NITRITE-REFLEX NEGATIVE (Negative); URINE PROTEIN (DIPSTICK) TRACE (Negative); URINE SPECIFIC GRAVITY 1.015 (1.005-1.035); URINE UROBILINOGEN 0.2 E.U./dl (0.2-1.0)
--- NOTE | 2020-12-16 10:31 | 2DMMODE ---
[facility] [place] [address] 2 D/M-MODE ECHOCARDIOGRAM Name: IRIS SWIFT MANUEL Room #: 205-P ADM IN M.R.#: [id number] Admission: 12/15/20 Attend Phys: Tj Reyna MD Discharge: Date of : 50 Report #: [id number] THIS REPORT FOR: cc: Henry Macedo James A. DO Lammoglia, Francisco J. MD ~ APPROVED REPORT Study performed: 12/16/2020 08:42:03 EXAM: Comprehensive 2D, Doppler, and color-flow Echocardiogram Patient Location: Bedside Room #: 205 Status: routine BSA: 1.94 HR: 72 bpm BP: 139/75 mmHg Rhythm: NSR Other Information Study Quality: Good Indications ICD: Congestive Heart Failure Diabetes Dyspnea CAD Hypertension/HDD 2D Dimensions RVDd: 41.19 mm IVSd: 12.76 (7-11mm) LVOT Diam: 22.73 (18-24mm) LVDd: 52.14 mm PWd: 13.84 (7-11mm) Ascending Ao: 30.32 (22-36mm) LVDs: 46.09 (25-40mm) Left Atrium: 45.08 (27-40mm) Aortic Root: 35.74 mm IVC: 25.00 mm Volumes Left Atrial Volume (Systole) Single Plane 4CH: 60.24 mL Single Plane 2CH: 77.83 mL LA ESV Index: 41.00 mL/m2 [facility] [email or web address] [address] 2 D/M-MODE ECHOCARDIOGRAM Name: IRIS SWIFT Room #: [facility] IN .R.#: [id number] Admission: 12/15/20 Attend Phys: Tj Reyna MD Discharge: Date of : 50 Report #: [id number] Aortic Valve AoV Peak Param.: 1.19 m/s AO Peak Gr.: 5.68 mmHg LVOT Max P.76 mmHg LVOT Max V: 0.66 m/s BANDAR Vmax: 2.26 cm2 Mitral Valve E/A Ratio: 2.9 MV Decel. Time: 141.33 ms MV E Max Param.: 1.09 m/s MV A Param.: 0.37 m/s MV PHT: 40.98 ms IVRT: 87.66 ms Pulmonary Valve PV Peak Param.: 1.00 m/s PV Peak Gr.: 3.99 mmHg Pulmonary Vein P Vein S: 0.17 m/s P Vein A: 0.34 m/s P Vein D: 0.57 m/s P Vein A Dur.: 129.2 msec P Vein S/D Ratio: 0.30 Tricuspid Valve TR Peak Param.: 3.86 m/s TR Peak Gr.: 59.68 mmHg PA Pressure: 70.00 mmHg Left Ventricle The left ventricle is normal size. Mild concentric left ventricular hypertrophy. Left ventricular ejection fraction is severely decreased. LVEF is 30-35%. Grade IV - fixed restrictive diastolic dysfunction. Right Ventricle Right ventricle is at the upper limits of normal. The right ventricular systolic function is normal. Device lead is present in the right ventricle. Atria Left atrium is dilated. Right atrium is dilated. Aortic Valve The aortic valve is normal in structure. The Aortic valve is sclerotic. No aortic regurgitation is present. There is no aortic valvular stenosis. [facility] [place] [address] 2 D/M-MODE ECHOCARDIOGRAM Name: IRIS SWIFT Room #: 205-P ADM IN M.R.#: [id number] Admission: 12/15/20 Attend Phys: Tj Reyna MD Discharge: Date of : 50 Report #: [id number] Mitral Valve The mitral valve is normal in structure. Trace mitral regurgitation. No evidence of mitral valve stenosis. Tricuspid Valve The tricuspid valve is normal in structure. There is mild tricuspid regurgitation. Estimated PAP 70 mmHg. There is severe pulmonary hypertension. Pulmonic Valve The pulmonary valve is normal in structure. Mild pulmonic regurgitation. Great Vessels The aortic root is normal in size. IVC is dilated and collapses >50% with inspiration. Pericardium There is no pericardial effusion. <Conclusion> The left ventricle is normal size. Mild concentric left ventricular hypertrophy. LVEF is 30-35%. Right ventricle is at the upper limits of normal. Device lead is present in the right ventricle. Left atrium is dilated. Right atrium is dilated. The aortic valve is normal in structure. The Aortic valve is sclerotic. The mitral valve is normal in structure. Trace mitral regurgitation. The tricuspid valve is normal in structure. There is mild tricuspid regurgitation. Estimated PAP 70 mmHg. There is severe pulmonary hypertension. The pulmonary valve is normal in structure. Mild pulmonic regurgitation. The aortic root is normal in size. There is no pericardial effusion. <ELECTRONICALLY SIGNED> By: Robert Montgomery MD 12/16/20 1030 1030 1030 Robert Montgomery MD /INF
[2020-12-16 10:39] LABS: CRYSTALS None Seen /LPF (None Seen); SQUAMOUS 0-3 Few /LPF (0-3)
[2020-12-16 10:40] LABS: HYALINE CASTS 4-10 Moderate /LPF (None Seen)
[2020-12-16 10:42] LABS: BACTERIA-REFLEX 1-9 Few /HPF (None Seen); URINE RBC 3-10 Few /HPF (NONE SEEN); URINE WBC-REFLEX None Seen /HPF (0-5)
[2020-12-16 11:45] VITALS: BP 139/72
--- NOTE | 2020-12-16 12:46 | NUR ---
PT ALERT AND ORIENTED TIMES FOUR. VSS. 2L PER NASAL CANNULA. PT DENIES PAIN. PT TOLERATES MEDS, BUT HAS A POOR APPETITE. PT UP WALKING TO THE RESTROOM WITH STANDBY ASSIST. NO ACUTE DISTRESS NOTED. WILL CONTINUE TO MONITOR.
[2020-12-16 15:50] VITALS: BP 145/81; BP 15/81
[2020-12-16 20:13] VITALS: BP 160/90
--- NOTE | 2020-12-16 23:09 | NUR ---
PT ADMITTED FROM ER AT 2035, PT IS FROM [facility], DENIES PAIN OR SOB, SR ON TELE, ADMISSION ASSESSMENT HX, EDUCATION AND HISTORY COMPLETED, MEDS GIVEN PER MAR, VSS, DENIES NEEDS, WILL CONTINUE TO MONITOR AND FOLLOW POC
[2020-12-17 00:24] VITALS: BP 139/68
[2020-12-17 03:38] VITALS: BP 137/71
--- NOTE | 2020-12-17 05:42 | NUR ---
ASSUMED CARE OF PT AT 1900, PT IS A/OX4. PT DENIES PAIN, DIZZINESS OR HEADACHE AT THIS TIME. ASSESSMENT COMPLETED NOTED. PT WAS FEBRIL AND TREATED WITH MEDICATION WITH IMPROVEMENT. WILL CONTINUE TO WORK TOWARDS PT'S POC.
--- NOTE | 2020-12-17 07:11 | EKG ---
[address] [place] [address] ELECTROCARDIOGRAM REPORT Name: IRIS SWIFT MANUEL Room #: 205- ADM IN M.R.#: [id number] Admission: 12/15/20 Attend Phys: Tj Reyna MD Discharge: Date of : 50 Report #: [id number] ED Test Date: 2020-12-15 Test Time: 21:28:53 Pat Name: IRIS SWIFT Department: Room: 205 P Gender: M Log Roper: unknown : 1950 Requested By: Joshua Millard Order Number: [id number] MD: Ashish Russo Measurements Intervals [place] Rate: 94 P: 20 NV: 199 QRS: -83 QRSD: 179 T: 89 QT: 421 QTc: 527 Interpretive Statements Sinus rhythm Probable left atrial enlargement Right bundle branch block Compared to ECG 07/27/2020 15:40:53 Sinus tachycardia no longer present Electronically Signed On 12-17-2020 7:10:53 CDT by Ashish Russo [email or web address] <ELECTRONICALLY SIGNED> By: Ashish Russo MD, [facility] 12/17/20709 27 27 Ashish Russo MD, FAC /EPI
[2020-12-17 07:55] VITALS: BP 159/77
[2020-12-17 09:37] LABS: ALBUMIN 3.1 g/dL (3.4-5.0); CALCIUM 8.6 mg/dL (8.5-10.1); CREATININE 2.3 mg/dL (0.7-1.3); PHOSPHORUS 3.9 mg/dL (2.6-4.7); POTASSIUM 3.6 mmol/L (3.5-5.1)
--- NOTE | 2020-12-17 10:55 | NUR ---
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 PATIENT REPORTS HE RESIDES IN HOME WITH AND DTR. PATIENT REPORTS APPROX 12-13 STEPS TO ENTER HOME. STEPS INSIDE HOME TO BASEMENT FOR LAUNDRY. 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 PCP IS DR TATE. PATIENT CONT TO DRIVE. UP IN ROOM AD EMILY. ANTICIPATE NOT DISCHARGE NEEDS. [facility] FOLLOWING
[2020-12-17 11:50] VITALS: BP 139/83
[2020-12-17 15:09] VITALS: BP 126/78
--- NOTE | 2020-12-17 15:40 | NUR ---
ASSESSMENT CHARTED - MEDS PER GIULIANO GAN D/C'D THIS AFTERNOON. PT WITH COUGH TESSLON PEARLS GIVEN ORDERED. UP TO THE BATHROOM - CHRIS DIET AND FLUIDS. ACCUCHECKS CHARTED - NO COVERAGE REQUIRED SO FAR THIS SHIFT. NO CO'S OF PAIN OR NAUSEA. STATES COMFORTABLE AT THE PRESENT TIME.
[2020-12-17 20:34] VITALS: BP 146/82
[2020-12-18 02:53] LABS: ABSOLUTE NEUTROPHILS 3.2 thou/uL (1.4-8.2); BASOPHILS 0.7 % (0.0-2.0); EOSINOPHILS 6.9 % (0.0-3.0); HEMATOCRIT 39.6 % (42.0-52.0); HEMOGLOBIN 12.8 gm/dL (14.0-18.0); LYMPHOCYTES 26.7 % (24.0-44.0); MCH 25.7 pg (26.0-34.0); MCHC 32.3 g/dL (28.0-37.0); MCV 79.7 fL (80.0-100.0); MONOCYTES 13.6 % (1.0-8.0); PLATELET COUNT 211 thou/uL (150-400); POLYS 52.1 % (36.0-66.0); RBC 4.96 mil/uL (4.50-6.00); WBC 6.2 thou/uL (4.0-11.0)
[2020-12-18 04:11] LABS: CALCIUM 8.4 mg/dL (8.5-10.1); POTASSIUM 3.3 mmol/L (3.5-5.1)
[2020-12-18 04:31] VITALS: BP 156/80
--- NOTE | 2020-12-18 06:10 | NUR ---
pt rest quietly thru the noc, no c/o pain, moves self in bed and up adlib in room, vss, will con't to monitor per ppoc.
[2020-12-18 07:27] VITALS: BP 148/84
[2020-12-18] MEDS ORDERED: BAYER CHEWABLE81 MG PO (08:59)
[2020-12-18] MEDS ORDERED: ROSUVASTATIN CA40 MG PO (08:59)
[2020-12-18 11:23] VITALS: BP 148/74
[2020-12-18] MEDS ORDERED: TESSALON PERLE100 MG PO (12:09)
[2020-12-18] MEDS ORDERED: CEFDINIR300 MG PO (12:09)
[2020-12-18] MEDS ORDERED: DEMADEX20 MG PO (12:09)
[2020-12-18 12:45] VITALS: BP 148/74
== END 2020-12-18 13:04 | disposition home or self-care (01) | DRG 291 ==
LOC: ER 21:04 → 2N 23:56 → EROBS 23:56 → 2N 12-16 01:30
PROVIDERS: Nurse Practitioner Adult Health; Nurse Practitioner Family; Physician Assistant; ADMIT Hospitalist; ATTEND Hospitalist
DX: I13.0 Hypertensive heart and chronic kidney disease with heart failure and stage 1 through stage 4 chronic kidney disease, or unspecified chronic kidney disease (principal); J18.9 Pneumonia, unspecified organism; J96.01 Acute respiratory failure with hypoxia; I50.43 Acute on chronic combined systolic (congestive) and diastolic (congestive) heart failure; R65.11 Systemic inflammatory response syndrome (SIRS) of non-infectious origin with acute organ dysfunction; N17.9 Acute kidney failure, unspecified; Z20.822 Contact with and (suspected) exposure to COVID-19; E78.00 Pure hypercholesterolemia, unspecified; I25.5 Ischemic cardiomyopathy; E78.5 Hyperlipidemia, unspecified; N18.30 Chronic kidney disease, stage 3 unspecified; E11.22 Type 2 diabetes mellitus with diabetic chronic kidney disease; I25.10 Atherosclerotic heart disease of native coronary artery without angina pectoris; Z87.442 Personal history of urinary calculi; Z95.1 Presence of aortocoronary bypass graft; Z95.810 Presence of automatic (implantable) cardiac defibrillator; Z88.8 Allergy status to other drugs, medicaments and biological substances; Z91.14 Patient's other noncompliance with medication regimen; Z79.899 Other long term (current) drug therapy; Z79.82 Long term (current) use of aspirin
CPT/HCPCS: 10081